=== PATIENT | male | born 1995 | race Caucasian/White ===

== ENCOUNTER → 2017-04-01 | Outpatient (CLI) | payer BC ==
--- NOTE | 2017-04-02 06:33 | PAP/PSG TECHNICIAN REPORT ---
[facility] Heading Polysomnogram Report Study name: None Report date: 04/02/2017 Study date: 04/01/2017 Referring Physician: JUAN Regalado Name: ROSALBA STRANGE Interpreting Physician: Frank Shah D.O. Date of : 1995 Laborer Heading: LUCINDA Pena. Sex: Male Age: 21 StudyType: PSG PAP Weight: 382 lbs Height: 21 years, Height 5' 11" BMI: 53.27 Medications: LISINOPRIL 20 MG Patient History PATIENT HAS HISTORY OF DAYTIME FATIGUE, INSOMNIA AND IRREGULAR SLEEP SCHEDULE. PATIENT HAD A HOME SLEEP STUDY DONE IN JANUARY OF 2016 AND WAS POSITIVE FOR KENNETH WITH AN AHI OF 17.4/HR. HE IS HERE TODAY FOR A CPAP TITRATION. ESS = 4 RM 6 Parameters Monitored NPSG: E1-M2, E2-M1, Fp1-M2, Fp2-M1, F3-M2, F4-M2, F4-M1, C3-M2, C4-M2, C4-M1, O1-M2, O2-M2, O2-M1, T3-M2, T4-M1, P3-M2, P4-M1, CHIN1, CHIN2, HR, EKG, Legs, PFLOW, SNOR, FLOW, CFLOW, Tidal Volume, THOR, ABDO, SpO2, PLTH, CPRESS, ETCO2 Wave, ETCO2, pH Sleep Architecture Sleep Stages Time at Lights Off 9:30:14 PM STAGES Time (min.) TST (%) Time at Lights On 5:47:14 AM Wake 95.5 -- Total Recording Time (TRT) 497.50 min. N1 12.5 3 Total Sleep Period (TSP) 464.5 min. N2 257.0 64 Total Sleep Time (TST) 401.5min. N3 79.5 20 Awake Time 95.5 min. REM 52.5 13 Wake after Sleep Onset 63.0 min. Sleep Efficiency (SE) 81 % Sleep Onset Latency (TRAV) 32.5 min. Number of Stage 1 Shifts None Awakenings 11 Stage Changes 45 Number of REM periods 3 REM 52.5 13 REM Latency 212.0 min. NREM 349.0 87 Body Position Analysis Supine Right Left Side Prone Vertical Total Sleep Time (min.) 279.4 138.0 0.0 138.00 0.0 27.7 Total Sleep Time (%) 66% 34% 0% 34 0% N/A% Total Sleep Time REM (min.) 52.5 0.0 0.0 None 0.0 0.0 Total Sleep Time NREM (min.) 211.0 138.0 0.0 None 0.0 0.0 Intermittent Wake (min.) 15.9 51.9 0.0 None 0.0 27.7 Total Sleep Period (%) 60% None None None None None Arousals Myoclonus (PLM) * Events Count Index Events Count Index Spontaneous 28 4 Events Awake (PLMW) 131 82.3 Respiratory 4 0.6 Events Asleep w/ Arousal (PLMA) 1 0.1 PLM 1 0 Events Asleep w/o Arousal (PLMS) 24 3.6 Snoring 3 0 Total Asleep 25 3.7 Total 36 5 Total 156 19 Respiratory Analysis * CA OA MA CH H RERA Total Count 0 0 0 0 10 4 10 Index 0.0 0.0 0.0 0 1.5 1 2.1 Mean Duration 0.0 0.0 0.0 0.00 16.8 14.3 16.1 Longest Duration 0.0 0.0 0.0 0.00 0.0 15.6 23.2 Respiratory Event Summary Total Supine ~Supine Right Left Prone REM NREM Apneas Count 0 0 0 0 N/A N/A 0 0 Index 0.0 0 0 0.0 N/A N/A 0 0 Hypopneas (4% Desat) Count 10 6 4 4 N/A N/A 4 6 Index 1.5 1.4 2 1.7 N/A N/A 4.6 1.0 Apneas & All Hypopneas Count 10 6 4 4 N/A N/A 4 6 Index 1.5 1 2 2 N/A N/A 4.6 1.0 Respiratory Events (Shallot Cleaner+All Hyp+RERA) Count 10 7 7 7 N/A N/A 4 6 Index 2.1 2 3 3.0 N/A N/A 4.6 1.7 Respiratory Related Arousal Count 4 7 3 3 N/A N/A 0 4 Index 0.6 0 1 1 N/A N/A 0 1 Snoring Analysis Supine Right Left Prone REM NREM Total Snore duration 0.8 min Snores count 26 8 N/A N/A 11 23 34 Snore mean duration 1.3 Sec Snores index 6 3 N/A N/A 12.6 4.0 5.1 TST with snoring (%) 0.2% Desaturation Event Summary: Minimum %SpO2 Event Count Mean/Min/Max Duration(sec.) Desaturation Index % Time In Bed > 90 18 26.7 / 6.5 / 56.5 2.2 99.9 86 - 90 0 N/A 0.0 0.1 81 - 85 0 N/A 0.0 0.0 76 - 80 0 N/A 0.0 0.0 71 - 75 0 N/A 0.0 0.0 66 - 70 0 N/A 0.0 0.0 61 - 65 0 N/A 0.0 0.0 56 - 60 0 N/A 0.0 0.0 51 - 55 0 N/A 0.0 0.0 < 50 0 N/A 0.0 0.0 Total REM NREM Awake <50% 0.0 min. 0.0 min. 0.0 min. 0.0 min. 51 - 60% 0.0 min. 0.0 min. 0.0 min. 0.0 min. 61 - 70% 0.0 min. 0.0 min. 0.0 min. 0.0 min. 71 - 80% 0.0 min. 0.0 min. 0.0 min. 0.0 min. 81 - 90% 0.4 min. 0.1 min. 0.1 min. 0.2 min. 91 - 100% 489.6 min. 52.4 min. 348.9 min. 88.2 min. Average 94 94 94 96 Minimum SpO2 86 90 90 86 Desaturation Event Index 2.2 4.6 1.2 4.4 # Desat. Events below 89% N/A N/A N/A N/A Time(%) with Saturation below 89% 0.0 0.0 0.0 0.0 Time(min.) with Saturation below 89% 0.2 0.0 0.0 0.2 Time (mins) REM (mins) NREM (mins) % of TST SpO2 Below 90% 2 1 N1 0.0 SpO2 Below 88% 0 0 0 0 Heart Rate Analysis Min (bpm) Max (bpm) Average (bpm) Awake 54 127 84 NREM 59 104 77 REM 63 97 79 Overall 59 104 77 Supplemental O2 Values Minimum O2 level: None Value Start Time End Time Laborer Heading Comments Mr. Strange slept in the right and supine positions. Irregular EKG at times. Leg movements noted. No bruxism noted. CPAP was initiated at +4 CMH2O and up-titrated to an optimal level of +10 CMH2O, which nearly eliminated all respiratory events and snoring. A Resmed Mirage Quattro full face size medium mask was used during titration Mr. Strange awoke to use the restroom 1 time during the night. Mr. Strange stated I slept as well as I do when I am in my own bed. The final report will be interpreted and signed by a sleep physician. The completed physician report will then be placed in the patient medical record. Therapy Event: Therapy (cm H20) 4 8 9 10 Total Time at Pressure (min.) 2.3 58.0 342.9 93.8 TST at Pressure (min.) 0.0 27.8 284.4 89.3 # Periods 1 1 1 1 Sleep Onset (min.) N/A 30.2 0.0 0.0 REM Onset (min.) N/A N/A 184.2 0.0 Sleep Efficiency % 0 47 82 95 Wakefulness (%) 100.0 52.1 17.1 4.8 Wakefulness (min.) 2.3 30.2 58.5 4.5 NREM 1 (%) 0.0 2.6 3.1 0.5 NREM 1 (min.) 0.0 1.5 10.5 0.5 NREM 2 (%) 0.0 37.1 48.6 73.5 NREM 2 (min.) 0.0 21.5 166.5 69.0 NREM 3 (%) 0.0 8.2 17.6 15.5 NREM 3 (min.) 0.0 4.8 60.2 14.5 REM (%) 0.0 0.0 13.8 5.7 REM (min.) 0.0 0.0 47.2 5.3 # Arousals N/A 10 22 4 Arousal Index N/A 21.6 4.6 2.7 # Snore N/A 4 27 3 Snore Index N/A 8.6 5.7 2.0 AHI N/A 8.6 1.3 0.0 AHI Supine N/A N/A 1.5 0.0 AHI Non-Supine N/A 8.6 0.0 0.0 NREM AHI N/A 8.6 0.5 0.0 REM AHI N/A N/A 5.1 0.0 RDI N/A 15.1 1.5 0.0 # Obstructive N/A 0 0 0 # Central Ap N/A 0 0 0 # Mixed N/A 0 0 0 # Hypopneas N/A 4 6 0 RERAS N/A 3 1 0 Total Respiratory Events N/A 7 7 0 Time Below SpO2 89.00% (min.) 0.0 0.0 0.0 0.0 Mean NREM SpO2 (%) N/A 94 94 94 Mean REM SpO2 (%) N/A N/A 94 94 Mean Sleep SpO2 (%) N/A 94 94 94 Min NREM SpO2 (%) N/A 91 90 93 Min REM SpO2 (%) N/A N/A 90 93 Position Supine (min.) 0.0 0.0 235.2 28.3 Position Non-supine (min.) 0.0 27.8 49.2 61.0 LM Index Sleep N/A 21.6 3.0 0.7 LM Index NREM N/A 21.6 2.3 0.7 LM Index REM N/A N/A 6.4 0.0 Mean Heart Rate (bpm) N/A 84 78 73 Min Heart Rate (bpm) N/A 59 61 62
--- NOTE | 2017-04-11 09:12 | Sleep Study ---
Sleep Study Report Date of Service: 04/01/2017 Sleep Study Report Clinical data: The patient is a 21-year-old male who has a BMI of 53.27. He has a history of daytime fatigue, insomnia, and irregular sleep schedule. He had a home sleep study done in January of 2016 which showed moderate sleep apnea with an apnea- hypopnea index of 17.4. He has an Henrietta score of 4 out of a possible 24. He is referred for a CPAP titration study. Sleep architecture: The total sleep period is 464.5 minutes. The total sleep time was 401.5 minutes. The sleep efficiency is mildly reduced to 81 percent. The sleep latency was moderately prolonged to 32.5 minutes. Wake after sleep onset was increased to 63 minutes. Sleep consisted of stage N1 3 percent, stage N2 64 percent, stage N3 20 percent , stage REM 13 percent. Arousal data: The patient had a total of 36 arousals including 28 spontaneous arousals, 4 respiratory arousals, 1 PLM arousal, and 3 snoring arousals. The arousal index was 5. PLM data: Patient had a total of 25 periodic limb movements of sleep for an index of 3.7. There was 1 arousal associated with limb movements for a PLM arousal index of 0.1. EKG: The patient had an underlying rhythm that appeared to be sinus arrhythmia. The cardiac rates ranged from 59 to 104 beats per minute. The average heart rate was 77 beats per minute. Respiratory data: The patient's respiratory events were treated with nasal CPAP which was titrated to a final pressure of 10 centimeters. For the night he had a total of 10 respiratory events, all hypopneas. Hypopneas were scored according to the 4 percent desaturation rule. The mean duration of hypopneas was 16.8 seconds. The apnea-hypopnea index was 1.5 which would be within the limits of normal. He also had four RERAS. Oximetry data: The average saturation for the night was 94 percent. The minimum saturation was 86 percent. Was a total of only 0.2 minutes with saturations less than 89 percent. Gis Software Engineer comments: The patient slept in the right and supine positions. Leg movements noted. No bruxism noted. CPAP was initiated at 4 centimeters of water and up titrated to an optimum level of 10 centimeters water. This nearly eliminated all respiratory events and snoring. A ResMed Mirage Quattro full face mask size medium was used during the titration. Patient indicated that he slept as well as he usually does when he is in his own bed. Impressions: 1. Obstructive sleep apnea-resolved with nasal CPAP at 10 centimeters Comments: The patient tolerated nasal CPAP well. His sleep efficiency was mildly reduced but his sleep was overall well consolidated after 12 midnight. The sleep apnea was resolved at the final pressure with no respiratory events. Oxygenation was normal. Recommendations: 1. It is advised that the patient be started on nasal CPAP at 10 centimeters. 2. It is suggested that he be ordered a ResMed Mirage Quattro full face mask size medium 3. A weight reduction program is advised in light of the elevation of body mass index 53.27. 4. It is suggested that if possible the patient avoid sleeping in the supine position as there is typically more respiratory events while supine. 5. The patient should be seen between day 31 and a 90 following the initiation of nasal CPAP therapy. 6. The patient should be advised of the appropriate principles of sleep hygiene. This would include having a regular sleep-wake schedule and allowing approximately 7.5-8 hours of sleep per night. Copies To 1: Annika Clark CRNP; Frank Shah,
== END | disposition home or self-care (01) ==
LOC: C.NEUR 20:00
PROVIDERS: ATTEND Nurse Practitioner
DX: G47.33 Obstructive sleep apnea (adult) (pediatric) (principal)